=== PATIENT | female | born 1950 | race Caucasian/White ===

== ENCOUNTER → 2019-11-17 | Outpatient (CLI) | payer MEDICARE ==
--- NOTE | 2019-11-18 07:11 | US ---
EXAMINATION TYPE: US bladder DATE OF EXAM: 11/17/2019 COMPARISON: NONE CLINICAL HISTORY: R31.0 Gross Hematuria, R39.11 Hesitancy, R39.15 Urgency of u. hematuria, urgency EXAM MEASUREMENTS: Post Void Residual Volume: 33.1 mL Color Doppler performed to assess ureteral jets. Bilateral Jets seen: yes Normal Post Void Residual (less than 50ml): yes IMPRESSION: No acute process.
== END | disposition home or self-care (01) ==
LOC: RADUSWWP 15:37
PROVIDERS: ATTEND Family Medicine
DX: R31.0 Gross hematuria (principal); R39.11 Hesitancy of micturition; R39.15 Urgency of urination
CPT/HCPCS: 76857

== ENCOUNTER → 2020-12-30 | Outpatient (CLI) | payer MEDICARE ==
--- NOTE | 2021-01-04 09:06 | MM ---
Reason for exam: screening (asymptomatic). Last mammogram was performed 9 years and 1 month ago. History: Patient is postmenopausal and history of other cancer. Took estrogen for 1 year. Took progesterone for 1 year. Physical Findings: A clinical breast exam by your physician is recommended on an annual basis and results should be correlated with mammographic findings. MG 3D Screening Mammo W/Cad Bilateral CC and MLO view(s) were taken. Prior study comparison: December 04, 2011, bilateral digital screening mammo w/CAD. November 07, 2010, bilateral digital screening mammo w/CAD. There are scattered fibroglandular densities. No significant changes when compared with prior studies. ASSESSMENT: Benign, BI-RAD 2 RECOMMENDATION: Routine screening mammogram of both breasts in 1 year.
== END | disposition home or self-care (01) ==
LOC: RADMAMWWP 12:47
PROVIDERS: ATTEND Family Medicine
DX: Z12.31 Encounter for screening mammogram for malignant neoplasm of breast (principal); Z78.0 Asymptomatic menopausal state
CPT/HCPCS: 77063; 77067

== ENCOUNTER 2023-01-03 08:33 | Observation (INO) | payer MEDICARE ==
[2023-01-03] MEDS ORDERED: NITROGLYCERIN OINT 1 INCH/GM PACKET TOPICAL STA (09:00)
[2023-01-03] MEDS ORDERED: ONDANSETRON 4 MG/2 ML VIAL IVP STA (09:10)
[2023-01-03 09:14] LABS: Basophils % (A) 0 %; Eosinophils # (A) 0.1 k/uL (0-0.7); Eosinophils % (A) 2 %; HCT 40.9 % (34.0-46.0); HGB 13.7 gm/dL (11.4-16.0); Lymphocytes % (A) 18 %; MCH 32.1 pg (25.0-35.0); MCHC 33.5 g/dL (31.0-37.0); Mean Platelet Volume 9.1; Monocytes # (A) 0.3 k/uL (0-1.0); Monocytes % (A) 4 %; Neutrophils # (A) 4.1 k/uL (1.3-7.7); Neutrophils % (A) 73 %; Platelet Count 110 k/uL (150-450); RBC 4.26 m/uL (3.80-5.40); RDW 13.1 % (11.5-15.5); WBC 5.6 k/uL (3.8-10.6)
[2023-01-03 09:24] LABS: ALT 29 U/L (4-34); AST 33 U/L (14-36); African American GFR (CKD) >90 (>60 ml/min/1.73 sqM); Albumin 4.2 g/dL (3.5-5.0); Alkaline Phosphatase 86 U/L (38-126); Anion Gap 7 mmol/L; Blood Urea Nitrogen 20 mg/dL (7-17); Calcium 9.2 mg/dL (8.4-10.2); Carbon Dioxide 28 mmol/L (22-30); Chloride 105 mmol/L (98-107); Glucose 91 mg/dL (74-99); Magnesium 1.9 mg/dL (1.6-2.3); Non-African American GFR(CKD) >90 (>60 ml/min/1.73 sqM); Potassium 4.4 mmol/L (3.5-5.1); Sodium 140 mmol/L (137-145); Total Bilirubin 0.8 mg/dL (0.2-1.3); Total Protein 6.9 g/dL (6.3-8.2)
[2023-01-03 09:27] LABS: INR 0.9 (<1.2); Partial Thromboplastin Time 23.7 sec (22.0-30.0); Prothrombin Time 9.9 sec (10.0-12.5)
--- NOTE | 2023-01-03 09:49 | XR ---
EXAMINATION TYPE: XR chest 2V DATE OF EXAM: 01/03/2023 COMPARISON: 01/04/2020 INDICATION: Blood pressure TECHNIQUE: Frontal and lateral views of the chest are obtained. FINDINGS: The heart size is normal. The pulmonary vasculature is normal. The lungs are clear. IMPRESSION: 1. No acute pulmonary process.
--- NOTE | 2023-01-03 10:30 | ED ---
General Adult HPI - General Chief complaint: Chest Pain Stated complaint: High BP, Nausea Time Seen by Provider: 01/03/23 08:45 Source: patient, RN notes reviewed, old records reviewed Mode of arrival: ambulatory Limitations: no limitations - History of Present Illness Initial comments: this is a 72-year-old female who presents emergency Department complaining of chest pain patient states it started around 8 AM. Patient states she does have high blood pressure high cholesterol. Patient states she also has significant thyroid problems. Patient states she has some shortness of breath per patient denies any diaphoretic episodes. Patient denies any palpitations. Patient denies any nausea. Patient denies abdominal pain patient denies any recent fever chills or cough. She denies headache patient denies numbness weakness. - Related Data Allergies Allergy/AdvReac Type Severity Reaction Status Date / Time aspirin AdvReac Unknown Verified 01/03/23 08:39 Review of Systems ROS Statement: Those systems with pertinent positive or pertinent negative responses have been documented in the HPI. ROS Other: All systems not noted in ROS Statement are negative. Past Medical History Past Medical History: Coronary Artery Disease (CAD), Heart Failure, Hyperlipidemia, Hypertension, Thyroid Disorder History of Any Multi-Drug Resistant Organisms: None Reported Past Surgical History: Hernia Repair Additional Past Surgical History / Comment(s): gastric bypass 1998, Past Psychological History: No Psychological Hx Reported Smoking Status: Never smoker Past Alcohol Use History: None Reported Past Drug Use History: None Reported General Exam - General Exam Comments Initial Comments: GENERAL: Patient is well-developed and well-nourished. Patient is nontoxic and well- hydrated and is in mild distress. ENT: Neck is soft and supple. No significant lymphadenopathy is noted. Oropharynx is clear. Moist mucous membranes. Neck has full range of motion without eliciting any pain. EYES: The sclera were anicteric and conjunctiva were pink and moist. Extraocular movements were intact and pupils were equal round and reactive to light. Eyelids were unremarkable. PULMONARY: Unlabored respirations. Good breath sounds bilaterally. No audible rales rhonchi or wheezing was noted. CARDIOVASCULAR: There is a regular rate and rhythm without any murmurs gallops or rubs. ABDOMEN: Soft and nontender with normal bowel sounds. SKIN: Skin is clear with no lesions or rashes and otherwise unremarkable. NEUROLOGIC: Patient is alert and oriented x3. Cranial nerves II through XII are grossly intact. Motor and sensory are also intact. Normal speech, volume and content. Symmetrical smile. MUSCULOSKELETAL: Normal extremities with adequate strength and full range of motion. No lower extremity swelling or edema. No calf tenderness. LYMPHATICS: No significant lymphadenopathy is noted PSYCHIATRIC: Normal psychiatric evaluation. Limitations: no limitations Course Vital Signs 01/03/23 01/03/23 01/03/23 08:35 08:54 09:05 Temperature 98 F Pulse Rate 76 75 Pulse Rate [ 68 Java Analyst ] Respiratory 18 17 Rate Blood Pressure 177/82 190/97 O2 Sat by Pulse 98 98 Oximetry 01/03/23 01/03/23 01/03/23 09:42 10:05 11:02 Temperature Pulse Rate 74 67 72 Pulse Rate [ Java Analyst ] Respiratory 17 16 17 Rate Blood Pressure 188/99 176/102 175/99 O2 Sat by Pulse 95 95 95 Oximetry Medical Decision Making - Medical Decision Making EKG was interpreted by myself. EKG shows a sinus rhythm with occasional PVC at a rate of 70 bpm WA interval 166 QRS is 88 QT interval 375 QTC is 396 per patient's EKG shows no ST segment or depression. Was pt. sent in by a medical professional or institution (, PA, CENTRAL SUPPLY NURSE, urgent ca re, hospital, or [facility]...) When possible be specific @ -No Did you speak to anyone other than the patient for history (EMS, parent, family, police, friend...)? What history was obtained from this source @ -No Did you review nursing and triage notes (agree or disagree)? Why? @ -I reviewed and agree with nursing and triage notes Were old charts reviewed (outside hosp., previous admission, EMS record, old EKG, old radiological studies, urgent care reports/EKG's, [facility] records)? Report findings @ -I reviewed prior charts apart lab work on this patient Differential Diagnosis (chest pain, altered mental status, abdominal pain women, abdominal pain men, vaginal bleeding, weakness, fever, dyspnea, syncope, headache, dizziness, GI bleed, back pain, seizure, CVA, palpatations, mental health, musculoskeletal)? @ -Differential Chest Pain: Stable Angina, Unstable Angina, STEMI, NSTEMI Aortic Dissection, Pneumothorax, Musculoskeletal, Esophageal Spasm GERD, Cholecystitis, Pancreatitis, Zoster, this is not meant to be an all-inclusive list. EKG interpreted by me (3pts min.). @ -As above X-rays interpreted by me (1pt min.). @ -Chest x-ray showed no acute abnormality CT interpreted by me (1pt min.). @ -None done U/S interpreted by me (1pt. min.). @ -None done What testing was considered but not performed or refused? (CT, X-rays, U/S, labs)? Why? @ -None What meds were considered but not given or refused? Why? @ -None Did you discuss the management of the patient with other professionals (professionals i.e. , PA, CENTRAL SUPPLY NURSE, lab, RT, psych nurse, licensed social worker, cold type artist, teacher, retail loan officer, residential case manager)? Give summary @ -I spoke with the [facility] agreed to admit the patient admitted the patient wrote admitting orders Was smoking cessation discussed for >3mins.? @ -No Was critical care preformed (if so, how long)? @ -No Were there social determinants of health that impacted care today? How? (Homele ssness, low income, unemployed, alcoholism, drug addiction, transportation, low edu. Level, literacy, decrease access to med. care, halfway, rehab)? @ -No Was there de-escalation of care discussed even if they declined (Discuss DNR or withdrawal of care, Hospice)? DNR status @ -No What co-morbidities impacted this encounter? (DM, HTN, Smoking, COPD, CAD, Cancer, CVA, ARF, Chemo, Hep., AIDS, mental health diagnosis, sleep apnea, morbid obesity)? @ -None Was patient admitted / discharged? Hospital course, mention meds given and route, prescriptions, significant lab abnormalities, going to OR and other pertinent info. @ -Patient was given aspirin and Nitropaste. I reevaluated the patient and she stated she felt as though the Nitropaste help relieve her chest pain. I spoke with [facility] agreed to admit the patient I wrote admitting orders and I consulted cardiology. Patient currently is having chest pain but very slight. Undiagnosed new problem with uncertain prognosis? @ -No Drug Therapy requiring intensive monitoring for toxicity (Heparin, Nitro, Insulin, Cardizem)? @ -No Were any procedures done? @ -No Diagnosis/symptom? @ -Chest pain Acute, or Chronic, or Acute on Chronic? @ -Acute Uncomplicated (without systemic symptoms) or Complicated (systemic symptoms)? @ -Complicated Side effects of treatment? @ -No Exacerbation, Progression, or Severe Exacerbation? @ -No Poses a threat to life or bodily function? How? (Chest pain, USA, MS, pneumonia, PE, COPD, DKA, ARF, appy, cholecystitis, CVA, Diverticulitis, Homicidal, Suicidal, threat to staff... and all critical care pts) @ -Yes this could lead to an MS and cause end organ dysfunction - Lab Data Result diagrams: 01/03/23 09:03 01/03/23 09:03 Lab Results 01/03/23 01/03/23 01/03/23 Range/Units 09: 09: 09:03 WBC 5.6 (3.8-10.6) k/uL RBC 4.26 (3.80-5.40) m/uL Hgb 13.7 (11.4-16.0) gm/dL Hct 40.9 (34.0-46.0) % MCV 96.0 (80.0-100.0) fL MCH 32.1 (25.0-35.0) pg MCHC 33.5 (31.0-37.0) g/dL RDW 13.1 (11.5-15.5) % Plt Count 110 L (150-450) k/uL MPV 9.1 Neutrophils % 73 % Lymphocytes % 18 % Monocytes % 4 % Eosinophils % 2 % Basophils % 0 % Neutrophils # 4.1 (1.3-7.7) k/uL Lymphocytes # 1.0 (1.0-4.8) k/uL Monocytes # 0.3 (0-1.0) k/uL Eosinophils # 0.1 (0-0.7) k/uL Basophils # 0.0 (0-0.2) k/uL PT 9.9 L (10.0-12.5) sec INR 0.9 (<1.2) APTT 23.7 (22.0-30.0) sec Sodium 140 (137-145) mmol/L Potassium 4.4 (3.5-5.1) mmol/L Chloride 105 (98-107) mmol/L Carbon Dioxide 28 (22-30) mmol/L Anion Gap 7 mmol/L BUN 20 H (7-17) mg/dL Creatinine 0.56 (0.52-1.04) mg/dL Est GFR (CKD-EPI)AfAm >90 (>60 ml/min/1.73 sqM) Est GFR (CKD-EPI)NonAf >90 (>60 ml/min/1.73 sqM) Glucose 91 (74-99) mg/dL Calcium 9.2 (8.4-10.2) mg/dL Magnesium 1.9 (1.6-2.3) mg/dL Total Bilirubin 0.8 (0.2-1.3) mg/dL AST 33 (14-36) U/L ALT 29 (4-34) U/L Alkaline Phosphatase 86 (38-126) U/L Troponin I (0.000-0.034) ng/mL Total Protein 6.9 (6.3-8.2) g/dL Albumin 4.2 (3.5-5.0) g/dL Coronavirus (PCR) (Not Detectd) 01/03/23 01/03/23 Range/Units 09:03 09:45 WBC (3.8-10.6) k/uL RBC (3.80-5.40) m/uL Hgb (11.4-16.0) gm/dL Hct (34.0-46.0) % MCV (80.0-100.0) fL MCH (25.0-35.0) pg MCHC (31.0-37.0) g/dL RDW (11.5-15.5) % Plt Count (150-450) k/uL MPV Neutrophils % % Lymphocytes % % Monocytes % % Eosinophils % % Basophils % % Neutrophils # (1.3-7.7) k/uL Lymphocytes # (1.0-4.8) k/uL Monocytes # (0-1.0) k/uL Eosinophils # (0-0.7) k/uL Basophils # (0-0.2) k/uL PT (10.0-12.5) sec INR (<1.2) APTT (22.0-30.0) sec Sodium (137-145) mmol/L Potassium (3.5-5.1) mmol/L Chloride (98-107) mmol/L Carbon Dioxide (22-30) mmol/L Anion Gap mmol/L BUN (7-17) mg/dL Creatinine (0.52-1.04) mg/dL Est GFR (CKD-EPI)AfAm (>60 ml/min/1.73 sqM) Est GFR (CKD-EPI)NonAf (>60 ml/min/1.73 sqM) Glucose (74-99) mg/dL Calcium (8.4-10.2) mg/dL Magnesium (1.6-2.3) mg/dL Total Bilirubin (0.2-1.3) mg/dL AST (14-36) U/L ALT (4-34) U/L Alkaline Phosphatase (38-126) U/L Troponin I <0.012 (0.000-0.034) ng/mL Total Protein (6.3-8.2) g/dL Albumin (3.5-5.0) g/dL Coronavirus (PCR) Not Detected (Not Detectd) Disposition Clinical Impression: Chest pain Disposition: ADMITTED IP TO THIS HOSP Referrals: Rabia Hdez MD [Primary Care Provider] - 1-2 days Time of Disposition: 11:53
[2023-01-03] MEDS ORDERED: NITROGLYCERIN SL TABS 0.4 MG TAB SUBLINGUAL PRN (11:55)
[2023-01-03] MEDS: NITROGLYCERIN OINT 1 INCH/GM PACKET TOPICAL SCH ×2 (12:07→17:37)
[2023-01-03] MEDS ORDERED: NALOXONE 0.4 MG/ML 1 ML VIAL IVP PRN (12:37)
[2023-01-03] MEDS ORDERED: HYDROcodone/APAP 5-325MG 1 EACH TAB PO PRN (12:37)
[2023-01-03] MEDS ORDERED: ACETAMINOPHEN TAB 325 MG TAB PO PRN (12:37)
[2023-01-03] MEDS ORDERED: hydrALAZINE HCL 20 MG/ML 1 ML VIAL IVP PRN (12:38)
--- NOTE | 2023-01-03 12:44 | P.HPIM ---
History of Present Illness H&P Date: 01/03/23 Chief Complaint: Chest pain, headache, paresthesia * 72-year-old patient with past medical history significant for hypertension, hyperlipidemia, thyroid disorder presented to the emergency department with complains of chest pressure, and bilateral hand numbness that started earlier today when patient was going to work. Patient states that her blood pressure has been running high for the last few days. * Workup obtained in ER included EKG which showed sinus rhythm with occasional PVC and nonspecific ST segment changes no ST segment elevation or depression noted * Chest x-ray obtained in ER negative for acute abnormality * Serum chemistry obtained showed white cell count of 5.6 hemoglobin 13.7 hematocrit 40 platelet 110 * Basic metabolic panel showed serum chemistry sodium 140 potassium 4.4 chloride 105 BUNs 20 creatinine 0.56 blood glucose 91 * Patient to be admitted to medical floor with consultations from cardiology * While in ER patient was noted to have extubated hypertension, she was given sublingual nitro as well with improvement in chest pain REVIEW OF SYSTEMS: Chest pain, bilateral hand numbness CONSTITUTIONAL: No fever, no malaise, no fatigue. HEENT: No recent visual problems or hearing problems. Denied any sore throat. CARDIOVASCULAR: No , orthopnea, PND, no palpitations, no syncope. PULMONARY: No shortness of breath, no cough, no hemoptysis. GASTROINTESTINAL: No diarrhea, no nausea, no vomiting, no abdominal pain. NEUROLOGICAL: No headaches, no weakness, HEMATOLOGICAL: Denies any bleeding or petechiae. GENITOURINARY: Denies any burning micturition, frequency, or urgency. MUSCULOSKELETAL/RHEUMATOLOGICAL: Denies any joint pain, swelling, or any muscle pain. ENDOCRINE: Denies any polyuria or polydipsia. The rest of the 14-point review of systems is negative. PHYSICAL EXAMINATION: GENERAL: The patient is alert and oriented x3, not in any acute distress. Well developed, well nourished. HEENT: Pupils are round and equally reacting to light. EOMI. CARDIOVASCULAR: S1 and S2 present. No murmurs, rubs, or gallops. PULMONARY: Chest is clear to auscultation, no wheezing or crackles. ABDOMEN: Soft, nontender, nondistended, normoactive bowel sounds. No palpable organomegaly. MUSCULOSKELETAL: No joint swelling or deformity. EXTREMITIES: No cyanosis, clubbing, or pedal edema. NEUROLOGICAL: Gross neurological examination did not reveal any focal deficits. SKIN: No rashes. Past Medical History Past Medical History: Coronary Artery Disease (CAD), Heart Failure, Hyperlipidemia, Hypertension, Thyroid Disorder History of Any Multi-Drug Resistant Organisms: None Reported Past Surgical History: Hernia Repair Additional Past Surgical History / Comment(s): gastric bypass 1998, Past Psychological History: No Psychological Hx Reported Smoking Status: Never smoker Past Alcohol Use History: None Reported Past Drug Use History: None Reported Medications and Allergies Allergies Allergy/AdvReac Type Severity Reaction Status Date / Time aspirin AdvReac Unknown Verified 01/03/23 08:39 Physical Exam Vitals: Vital Signs Temp Pulse Pulse Resp BP Pulse Ox 01/03/23 12:02 97.8 F 66 16 156/89 95 01/03/23 11:02 72 17 175/99 95 01/03/23 10:05 67 16 176/102 95 01/03/23 09:42 74 17 188/99 95 01/03/23 09:05 75 17 190/97 98 01/03/23 08:54 68 01/03/23 08:35 98 F 76 18 177/82 98 Intake and Output 01/02/23 01/03/23 01/03/23 22:59 06:59 14:59 Other: Weight 112.945 kg Results CBC & Chem 7: 01/03/23 09:03 01/03/23 09:03 Labs: Abnormal Lab Results - Last 24 Hours (Table) 01/03/23 01/03/23 01/03/23 Range/Units 09:03 09:03 09:03 Plt Count 110 L (150-450) k/uL PT 9.9 L (10.0-12.5) sec BUN 20 H (7-17) mg/dL Assessment and Plan Assessment: Assessment and plan Chest pain rule out ACS Hypertensive urgency History of hypertension History of thyroid disorder Chronic thrombocytopenia * In regards to chest pain, serial troponins ordered, EKG obtained, cardiology consulted, sublingual nitroglycerin for chest pain, continue aspirin * In regards to hypertensive urgency, patient takes Cozaar at home, admission medication reconciliation to be confirmed. Patient started on Lopressor and when necessary IV hydralazine * In regards to thyroid disorder continue home medications once confirmed * In regards to thrombocytopenia, review of blood work shows platelet count ranging 145, 149 since 2019. Continue to monitor for worsening thrombocytopenia will need outpatient follow-up PCP * CODE STATUS is full code Time with Patient: Greater than 30
[2023-01-03] MEDS: METOPROLOL TARTRATE 12.5 MG TAB PO SCH ×2 (12:49→20:16)
[2023-01-03] MEDS ORDERED: LOSARTAN 50 MG TAB PO STA (13:04)
[2023-01-03] MEDS ORDERED: ALPRAZolam 0.25 MG TAB PO PRN (13:36)
[2023-01-03] MEDS ORDERED: ALPRAZolam 0.5 MG TAB PO PRN (13:36)
--- NOTE | 2023-01-03 13:52 | P.CRDCN ---
History of Present Illness Consult date: 01/03/23 History of present illness: History of present illness: This is this is a 72-year-old female patient of Dr. bertrand with past medical history of hypertension, dyslipidemia, history of gastric bypass surgery, known carotid atherosclerosis- recent ultrasound revealed mild carotid artery disease on the right and intermediate disease on the left. Patient was seen in the off ice this summer following an abnormal stress test that revealed moderate anterior ischemia and was advised to undergo cardiac catheterization but she chose to wait as her shortness of breath had been somewhat better and no symptoms of chest pain. We have been asked to evaluate the patient for chest pain. Patient presented with a dull heavy chest pain on the left side of her chest. She had certain recently increased to 50 mg week ago by her PCP as her blood pressure has been running elevated. Patient also has some shortness of breath. No palpitations, no sweats, no nausea no abdominal pain. No fever or chills. Patient is seen today in the emergency center waiting for a bed on the observation unit. EKG sinus rhythm with occasional PVCs, no acute ST changes Chest x-ray: No acute pulmonary process. WBC 5.6, hemoglobin 13.7, platelet count 110. INR 0.9. Electrolytes are normal. BUN 20 creatinine 0.56. Troponin negative 2. Covid 19 not detected. Liver function tests are normal. Magnesium 1.9. Home cardiac medications: Atorvastatin 20 mg daily, losartan 50 mg daily, Aldactone 50 mg daily at 5 PM, also on levothyroxine 75 g daily and on Tepezza IV q21d. Echocardiogram performed 02/2021 revealed EF of 70%. Lexiscan stress test 09/03/2022 was abnormal myocardial perfusion imaging with evidence of reversible defect of moderate size and mild intensity involving the anterior wall of the left ventricle. Normal left ventricle systolic function. Review Of Systems: At the time of my evaluation: Constitutional: No fever, no chills. No weakness, fatigue or lethargy. EENT: No headache. No dizziness. Lungs: No shortness of breath, cough, no sputum production. No wheezing. Cardiovascular: No chest pain, no lower extremity edema. No palpitations. No paroxysmal nocturnal dyspnea. No orthopnea. No lightheadedness or dizziness. No syncopal episodes. Abdominal: No abdominal pain. No nausea, vomiting. No diarrhea. No bloody or tarry stools. Musculoskeletal: No myalgias. No muscle weakness, no frequent falls. Integumentary: No wounds. No rash. No unusual bruising. Neurologic: No aphasia. No facial droop. No change in mentation. Physical examination: Gen: This is a morbidly obese 72-year-old female, resting on ER stretcher and appears to be comfortable and in no acute distress. VS: reviewed blood pressure 178/92, heart rate in the 60s and 70s, afebrile, pulse ox 95% on room air. HEENT: Head is atraumatic, normocephalic. Pupils equal, round. Sclerae is anicteric. NECK: Supple. No JVD. . LUNGS: Clear to auscultation. No wheezes or rhonchi. No intercostal retractions. HEART: Regular rate and rhythm. No murmur. ABDOMEN: Soft No tenderness. EXTREMITIES: No pedal edema. No calf tenderness. NEUROLOGICAL: Patient is awake, alert and oriented x3. Assessment: Chest pain, acute coronary syndrome ruled out Recent abnormal stress test Hypertension Dyslipidemia Morbid obesity status post gastric bypass surgery Carotid atherosclerosis Plan: Resume patient's home cardiac medications Start patient on amlodipine 5 mg daily Increase losartan to 100 mg daily Continue Lopressor 12.5 mg twice daily Schedule for cardiac catheterization tomorrow with Dr. Smith Nothing by mouth after midnight Repeat blood work in the morning Obtain 2-D echocardiogram and Doppler study to assess cardiac structure and function Further recommendations to follow based upon clinical course Thank you kindly for this consultation. Nurse practitioner note has been reviewed, I agree with documented findings and plan of care. Patient was seen and examined. Past Medical History Past Medical History: Coronary Artery Disease (CAD), Heart Failure, Hyperlipidemia, Hypertension, Thyroid Disorder History of Any Multi-Drug Resistant Organisms: None Reported Past Surgical History: Hernia Repair Additional Past Surgical History / Comment(s): gastric bypass 1998, Past Psychological History: No Psychological Hx Reported Smoking Status: Never smoker Past Alcohol Use History: None Reported Past Drug Use History: None Reported Medications and Allergies Home Medications Medication Instructions Recorded Confirmed Type Acetaminophen Tab [Tylenol Tab] 1,000 mg PO BID 01/03/23 01/03/23 History Acetaminophen/Diphenhydramine 2 tab PO HS 01/03/23 01/03/23 History [Tylenol PM 500-25mg] Atorvastatin [Lipitor] 20 mg PO DAILY 01/03/23 01/03/23 History Levothyroxine Sodium [Synthroid] 75 mcg PO DAILY@0630 01/03/23 01/03/23 History Losartan Potassium 50 mg PO DAILY@199901/03/23 01/03/23 History Multivitamins, Thera [Multivitamin 1 tab PO DAILY 01/03/23 01/03/23 History (formulary)] Spironolactone [Aldactone] 50 mg PO DAILY@1700 01/03/23 01/03/23 History Teprotumumab-Trbw [Tepezza] 500 mg IV Q21D 01/03/23 01/03/23 History Ubidecarenone [Coenzyme Q10] 50 mg PO DAILY 01/03/23 01/03/23 History Allergies Allergy/AdvReac Type Severity Reaction Status Date / Time aspirin AdvReac Unknown Verified 01/03/23 12:41 Physical Exam Vitals: Vital Signs Temp Pulse Pulse Resp BP Pulse Ox 01/03/23 12:02 97.8 F 66 16 156/89 95 01/03/23 11:02 72 17 175/99 95 01/03/23 10:05 67 16 176/102 95 01/03/23 09:42 74 17 188/99 95 01/03/23 09:05 75 17 190/97 98 01/03/23 08:54 68 01/03/23 08:35 98 F 76 18 177/82 98 Intake and Output 01/02/23 01/03/23 01/03/23 22:59 06:59 14:59 Other: Weight 112.945 kg Results 01/03/23 09:03 01/03/23 09:03 Cardiac Enzymes 01/03/23 01/03/23 Range/Units 09:03 09:03 AST 33 (14-36) U/L Troponin I <0.012 (0.000-0.034) ng/mL Coagulation 01/03/23 Range/Units 09:03 PT 9.9 L (10.0-12.5) sec APTT 23.7 (22.0-30.0) sec CBC 01/03/23 Range/Units 09:03 WBC 5.6 (3.8-10.6) k/uL RBC 4.26 (3.80-5.40) m/uL Hgb 13.7 (11.4-16.0) gm/dL Hct 40.9 (34.0-46.0) % Plt Count 110 L (150-450) k/uL Comprehensive Metabolic Panel 01/03/23 Range/Units 09:03 Sodium 140 (137-145) mmol/L Potassium 4.4 (3.5-5.1) mmol/L Chloride 105 (98-107) mmol/L Carbon Dioxide 28 (22-30) mmol/L BUN 20 H (7-17) mg/dL Creatinine 0.56 (0.52-1.04) mg/dL Glucose 91 (74-99) mg/dL Calcium 9.2 (8.4-10.2) mg/dL AST 33 (14-36) U/L ALT 29 (4-34) U/L Alkaline Phosphatase 86 (38-126) U/L Total Protein 6.9 (6.3-8.2) g/dL Albumin 4.2 (3.5-5.0) g/dL Current Medications Generic Name Dose Route Start Last Admin Trade Name Freq PRN Reason Stop Dose Admin Acetaminophen 650 mg 01/03/23 12:37 Acetaminophen Tab 325 Mg Tab PO Q6HR PRN Mild Pain or Fever > 100.5 Hydrocodone Bitart/Acetaminophen 1 each 01/03/23 12:37 Hydrocodone/Apap 5-325mg 1 Each Tab PO Q4HR PRN Moderate Pain (Scale 4 to 6) Aspirin 81 mg 01/04/23 09:00 Aspirin 81 Mg PO DAILY DARI Hydralazine HCl 10 mg 01/03/23 12:38 Hydralazine Hcl 20 Mg/Ml 1 Ml Vial IVP Q6HR PRN Blood Pressure - High Metoprolol Tartrate 12.5 mg 01/03/23 12:45 Metoprolol Tartrate 12.5 Mg Tab PO BID DARI Naloxone HCl 0.2 mg 01/03/23 12:37 Naloxone 0.4 Mg/Ml 1 Ml Vial IVP Q2M PRN Opioid Reversal Nitroglycerin 0.4 mg 01/03/23 11:55 Nitroglycerin Sl Tabs 0.4 Mg Tab SUBLINGUAL Q5M PRN Chest Pain Nitroglycerin 1 inch 01/03/23 12:00 01/03/23 12:07 Nitroglycerin Oint 1 Inch/Gm Packet TOPICAL Not Given Q6HR DARI Intake and Output 01/02/23 01/03/23 01/03/23 22:59 06:59 14:59 Other: Weight 112.945 kg Patient Weight 01/04/23 06:59 Weight 112.945 kg 01/03/23 09:03 01/03/23 09:03
[2023-01-03 15:08] LABS: T4, Free (Free Thyroxine) 1.45 ng/dL (0.78-2.19)
[2023-01-03] MEDS: SODIUM CHLORIDE 0.9% 1,000 ML IV SCH (15:12)
[2023-01-03] MEDS: SPIRONOLACTONE 25 MG TAB PO SCH (16:25)
[2023-01-03] MEDS: ACETAMINOPHEN TAB 500 MG TAB PO SCH (18:15)
[2023-01-03] MEDS ORDERED: LOSARTAN 50 MG TAB PO SCH (20:00)
[2023-01-03] MEDS: diphenhydrAMINE 25 MG CAP PO SCH (20:16)
[2023-01-03] MEDS: HEPARIN SODIUM,PORCINE 5,000 UNIT/ML 1 ML VIAL SQ SCH (20:17)
[2023-01-04] MEDS: NITROGLYCERIN OINT 1 INCH/GM PACKET TOPICAL SCH ×5 (00:13→20:58)
[2023-01-04] MEDS: SODIUM CHLORIDE 0.9% 1,000 ML IV SCH ×2 (04:36→18:53)
[2023-01-04] MEDS: ATORVASTATIN 20 MG TAB PO SCH (05:35)
[2023-01-04] MEDS: HEPARIN SODIUM,PORCINE 5,000 UNIT/ML 1 ML VIAL SQ SCH ×2 (05:39→20:10)
[2023-01-04] MEDS: METOPROLOL TARTRATE 12.5 MG TAB PO SCH ×2 (05:40→20:10)
[2023-01-04] MEDS: LOSARTAN 50 MG TAB PO SCH (05:40)
[2023-01-04] MEDS: amLODIPine 5 MG TAB PO SCH (05:40)
[2023-01-04] MEDS: MULTIVITAMINS, THERA 1 EACH TAB PO SCH (05:41)
[2023-01-04] MEDS: LEVOTHYROXINE 75 MCG TAB PO SCH (05:41)
[2023-01-04] MEDS: ACETAMINOPHEN TAB 500 MG TAB PO SCH ×2 (05:41→20:10)
[2023-01-04] MEDS ORDERED: HEPARIN SODIUM,PORCINE 10,000 UNIT in SODIUM CHLORIDE 0.9% 1,000 ML IRRIGATION PRN (07:00)
[2023-01-04] MEDS ORDERED: ASPIRIN 325 MG TAB PO ONE (07:00)
[2023-01-04] MEDS ORDERED: ATORVASTATIN 80 MG TAB PO ONE (07:00)
[2023-01-04] MEDS ORDERED: HEPARIN SODIUM,PORCINE (1 ML) 2,500 UNIT in SODIUM CHLORIDE 0.9% 250 ML IRRIGATION PRN (07:00)
[2023-01-04 07:08] LABS: African American GFR (CKD) >90 (>60 ml/min/1.73 sqM); Anion Gap 8 mmol/L; Blood Urea Nitrogen 19 mg/dL (7-17); Calcium 8.8 mg/dL (8.4-10.2); Carbon Dioxide 25 mmol/L (22-30); Chloride 105 mmol/L (98-107); Glucose 102 mg/dL (74-99); Non-African American GFR(CKD) >90 (>60 ml/min/1.73 sqM); Potassium 4.2 mmol/L (3.5-5.1); Sodium 138 mmol/L (137-145)
[2023-01-04] MEDS ORDERED: ASPIRIN 325 MG TAB PO SCH (09:00)
[2023-01-04] MEDS ORDERED: ASPIRIN 81 MG PO SCH (09:00)
--- NOTE | 2023-01-04 09:34 | CA ---
Transthoracic Echo Report Name: Aylin Chaney Age: 72 Gender: F : 1950 Exam Date: 01/03/2023 14:54 Exam Location: [facility] Ht (in): 65 Wt (lb): 249 Ordering Physician: Romelia Murray Attending/Referring Phys: [id number], Trevor Machine Lacer Rosana Morse, FOX Procedure CPT: Indications: LVF Cardiac Hx: CAD, HTN Technical Quality: Fair Contrast 1: Total Dose (mL): Contrast 2: Total Dose (mL): MEASUREMENTS (Male / Female) Normal Values 2D ECHO LV Diastolic Diameter PLAX 5.5 cm 4.2 - 5.9 / 3.9 - 5.3 cm LV Systolic Diameter PLAX 4.1 cm IVS Diastolic Thickness 1.3 cm 0.6 - 1.0 / 0.6 - 0.9 cm LVPW Diastolic Thickness 1.2 cm 0.6 - 1.0 / 0.6 - 0.9 cm LV Relative Wall Thickness 0.5 LA Systolic Diameter LX 4.3 cm 3.0 - 4.0 / 2.7 - 3.8 cm LV Diastolic Volume MOD 4C 72.4 cm??? LV Systolic Volume MOD 4C 34.4 cm??? LV Ejection Fraction MOD 4C 52.6 % LV Cardiac Index MOD 4C 1027.9 cm???/min???m??? LV Diastolic Length 4C 7.5 cm LV Systolic Length 4C 6.3 cm LV Diastolic Volume MOD 2C 83.8 cm??? LV Systolic Volume MOD 2C 40.8 cm??? LV Ejection Fraction MOD 2C 51.3 % LV Cardiac Index MOD 2C 1159.1 cm???/min???m??? LV Diastolic Length 2C 8.1 cm LV Systolic Length 2C 6.8 cm LA Volume 67.1 cm??? 18 - 58 / 22 - 52 cm??? LA Volume Index 28.8 cm???/m??? 16 - 28 cm???/m??? M-MODE Aortic Root Diameter MM 3.2 cm MV E Point Septal Separation 2.8 cm AV Cusp Separation MM 2.1 cm DOPPLER AV Peak Velocity 136.1 cm/s AV Peak Gradient 7.4 mmHg MV Area PHT 2.9 cm??? Mitral E Point Velocity 123.7 cm/s Mitral A Point Velocity 151.2 cm/s Mitral E to A Ratio 0.8 MV Deceleration Time 262.1 ms MV E' Velocity 5.1 cm/s Mitral E to MV E' Ratio 24.1 TR Peak Velocity 267.9 cm/s TR Peak Gradient 28.7 mmHg Right Ventricular Systolic Press 33.7 mmHg FINDINGS Left Ventricle Left ventricular ejection fraction is estimated at 50-55 %. Moderately increased septal wall thickness. Mildly increased posterior wall thickness. Mildly increased left ventricular diastolic diameter. Right Ventricle Normal right ventricular size. Right ventricular systolic pressure within normal limits. Right Atrium Normal right atrial size. Left Atrium Moderately increased left atrial diameter. Moderately increased left atrial volume. Mildly increased left atrial area. Mitral Valve Rheumatic mitral valve. Moderate mitral annular calcification. Mild mitral regurgitation. Aortic Valve Aortic valve not well visualized. No aortic stenosis. No aortic regurgitation. Tricuspid Valve Structurally normal tricuspid valve. Mild tricuspid regurgitation. Pulmonic Valve Pulmonic valve not well visualized. Pericardium No pericardial effusion. Aorta Normal size aortic root and proximal ascending aorta. CONCLUSIONS Normal LV size with fairly well-preserved systolic function. Left atrium is enlarged. There is mitral annular calcification and aortic valve sclerosis without restriction. There is mild mitral and tricuspid regurgitation no significant pulmonary hypertension no pericardial effusion Previewed by: Dr. Jaky Maddox MD (Electronically Signed) Final Date: 04 January 2023 09:33
--- NOTE | 2023-01-04 10:42 | P.PN ---
Subjective Progress Note Date: 01/04/23 History of present illness: This is this is a 72-year-old female patient of Dr. bertrand with past medical his tory of hypertension, dyslipidemia, history of gastric bypass surgery, known carotid atherosclerosis- recent ultrasound revealed mild carotid artery disease on the right and intermediate disease on the left. Patient was seen in the office this summer following an abnormal stress test that revealed moderate anterior ischemia and was advised to undergo cardiac catheterization but she chose to wait as her shortness of breath had been somewhat better and no symptoms of chest pain. We have been asked to evaluate the patient for chest pain. Patient presented with a dull heavy chest pain on the left side of her chest. She had certain recently increased to 50 mg week ago by her PCP as her blood pressure has been running elevated. Patient also has some shortness of breath. No palpitations, no sweats, no nausea no abdominal pain. No fever or chills. Patient is seen today in the emergency center waiting for a bed on the observation unit. EKG sinus rhythm with occasional PVCs, no acute ST changes Chest x-ray: No acute pulmonary process. WBC 5.6, hemoglobin 13.7, platelet count 110. INR 0.9. Electrolytes are normal. BUN 20 creatinine 0.56. Troponin negative 2. Covid 19 not detected. Liver function tests are normal. Magnesium 1.9. Home cardiac medications: Atorvastatin 20 mg daily, losartan 50 mg daily, Aldactone 50 mg daily at 5 PM, also on levothyroxine 75 g daily and on Tepezza IV q21d. Echocardiogram performed 02/2021 revealed EF of 70%. Lexiscan stress test 09/03/2022 was abnormal myocardial perfusion imaging with evidence of reversible defect of moderate size and mild intensity involving the anterior wall of the left ventricle. Normal left ventricle systolic function. 01/04 Patient seen today in follow-up. She is scheduled for cardiac catheterization today with Dr. Smith. Patient denies having any chest pain. Vital signs have been stable. Repeat blood work reveals BUN of 19, creatinine 0.57. CBC is status received and not reported at the time of this dictation. Echocardiogram reveals normal LV size with fairly well preserved systolic function. Left atrium is enlarged. Mitral annular calcification and aortic valve sclerosis without restriction. Mild mitral and tricuspid regurgitation. No significant pulmonary hypertension. Diffusion. Physical examination: Gen: This is a morbidly obese 72-year-old female, resting in bed and appears to be comfortable and in no acute distress. VS: reviewed HEENT: Head is atraumatic, normocephalic. Pupils equal, round. Sclerae is anicteric. LUNGS: Clear to auscultation. No wheezes or rhonchi. No intercostal retractions. HEART: Regular rate and rhythm. No murmur. EXTREMITIES: No pedal edema. No calf tenderness. NEUROLOGICAL: Patient is awake, alert and oriented x3. Assessment: Chest pain, acute coronary syndrome ruled out Recent abnormal stress test Hypertension Dyslipidemia Morbid obesity status post gastric bypass surgery Carotid atherosclerosis Plan: Continue patient's home cardiac medications Continue patient on amlodipine 5 mg daily Continue increased dose of losartan 100 mg daily Continue Lopressor 12.5 mg twice daily Patient is scheduled for cardiac catheterization today with Dr. Sarah NAVARRO pending Further recommendations to follow based upon clinical course Nurse practitioner note has been reviewed, I agree with documented findings and plan of care. Patient was seen and examined. Objective - Vital Signs Vital signs: Vital Signs Temp 97.6 F 01/04/23 07:00 Pulse 61 01/04/23 07:00 Resp 16 01/04/23 07:00 BP 129/77 01/04/23 07:00 Pulse Ox 96 01/04/23 07:00 FiO2 Intake & Output 01/03/23 01/04/23 01/04/23 18:59 06:59 18:59 Weight 112.945 kg Other: # Voids 1 - Labs CBC & Chem 7: 01/03/23 09:03 01/04/23 06:13 Labs: Abnormal Lab Results - Last 24 Hours (Table) 01/03/23 01/03/23 01/03/23 Range/Units 09:03 09:03 09:03 Plt Count 110 L (150-450) k/uL PT 9.9 L (10.0-12.5) sec BUN 20 H (7-17) mg/dL Glucose (74-99) mg/dL TSH (0.465-4.680) mIU/L 01/03/23 01/04/23 Range/Units 12:24 06:13 Plt Count (150-450) k/uL PT (10.0-12.5) sec BUN 19 H (7-17) mg/dL Glucose 102 H (74-99) mg/dL TSH 0.099 L (0.465-4.680) mIU/L
[2023-01-04 10:52] LABS: HCT 37.4 % (37.2-46.3); HGB 12.4 g/dL (12.0-15.0); MCH 31.6 pg (27.0-32.0); MCHC 33.2 g/dL (32.0-37.0); MCV 95.2 FL (80.0-97.0); Mean Platelet Volume 11.9 FL (9.5-12.2); NRBC Per 100 WBC 0 X 10*3/uL (0.00-0.01); Platelet Count 108 X 10*3/uL (140-440); RBC 3.93 X 10*6/uL (4.10-5.20); RDW 12.9 % (11.5-14.5); WBC 5.14 X 10*3/uL (4.50-10.00)
[2023-01-04 11:13] LABS: Chol/HDL Ratio 1.86 Ratio; LDL Cholesterol,Calculated 43.1 mg/dL (0.0-131.0); VLDL Calculation 10.94 mg/dL (5.00-40.00)
[2023-01-04] MEDS ORDERED: HEPARIN SODIUM 1,000 UN/ML (10ML VL) ONE (11:38)
--- NOTE | 2023-01-04 11:54 | P.PN ---
Subjective Progress Note Date: 01/04/23 * 72-year-old patient with past medical history significant for hypertension, hyperlipidemia, thyroid disorder presented to the emergency department with complains of chest pressure, and bilateral hand numbness that started earlier today when patient was going to work. Patient states that her blood pressure has been running high for the last few days. * Workup obtained in ER included EKG which showed sinus rhythm with occasional PVC and nonspecific ST segment changes no ST segment elevation or depression noted * Chest x-ray obtained in ER negative for acute abnormality * Serum chemistry obtained showed white cell count of 5.6 hemoglobin 13.7 hematocrit 40 platelet 110 * Basic metabolic panel showed serum chemistry sodium 140 potassium 4.4 chloride 105 BUNs 20 creatinine 0.56 blood glucose 91 * Patient to be admitted to medical floor with consultations from cardiology * While in ER patient was noted to have extubated hypertension, she was given sublingual nitro as well with improvement in chest pain * 01/04/2023: Patient seen and evaluated bedside, patient states chest pain has resolved, family at bedside as well. Multiple troponins obtained at remain negative. Plan for echocardiogram and cardiac catheterization today. Patient nothing by mouth in anticipation of cardiac cath. Blood pressure better controlled patient on amlodipine, losartan, Lopressor. CBC and basic metabolic panel reviewed liver profile reviewed REVIEW OF SYSTEMS: Chest pain, bilateral hand numbness resolved CONSTITUTIONAL: No fever, no malaise, no fatigue. HEENT: No recent visual problems or hearing problems. Denied any sore throat. CARDIOVASCULAR: No , orthopnea, PND, no palpitations, no syncope. PULMONARY: No shortness of breath, no cough, no hemoptysis. GASTROINTESTINAL: No diarrhea, no nausea, no vomiting, no abdominal pain. NEUROLOGICAL: No headaches, no weakness, HEMATOLOGICAL: Denies any bleeding or petechiae. GENITOURINARY: Denies any burning micturition, frequency, or urgency. MUSCULOSKELETAL/RHEUMATOLOGICAL: Denies any joint pain, swelling, or any muscle pain. ENDOCRINE: Denies any polyuria or polydipsia. PHYSICAL EXAMINATION: See vitals below GENERAL: The patient is alert and oriented x3, not in any acute distress. Well d eveloped, well nourished. HEENT: Pupils are round and equally reacting to light. EOMI. CARDIOVASCULAR: S1 and S2 present. No murmurs, rubs, or gallops. PULMONARY: Chest is clear to auscultation, no wheezing or crackles. ABDOMEN: Soft, nontender, nondistended, normoactive bowel sounds. No palpable organomegaly. MUSCULOSKELETAL: No joint swelling or deformity. EXTREMITIES: No cyanosis, clubbing, or pedal edema. NEUROLOGICAL: Gross neurological examination did not reveal any focal deficits. SKIN: No rashes. Objective - Vital Signs Vital signs: Vital Signs Temp 97.6 F 01/04/23 07:00 Pulse 61 01/04/23 07:00 Resp 16 01/04/23 07:00 BP 129/77 01/04/23 07:00 Pulse Ox 96 01/04/23 07:00 FiO2 Intake & Output 01/03/23 01/04/23 01/04/23 18:59 06:59 18:59 Weight 112.945 kg Other: # Voids 1 - Labs CBC & Chem 7: 01/04/23 06:13 01/04/23 06:13 Labs: Abnormal Lab Results - Last 24 Hours (Table) 01/03/23 01/04/23 01/04/23 Range/Units 12:24 06:13 06:13 RBC 3.93 L (4.10-5.20) X 10*6/uL Plt Count 108 L (140-440) X 10*3/uL BUN 19 H (7-17) mg/dL Glucose 102 H (74-99) mg/dL HDL Cholesterol 63.00 H (40.00-60.00) mg/dL TSH 0.099 L (0.465-4.680) mIU/L Assessment and Plan Assessment: Assessment and plan Chest pain rule out ACS Hypertensive urgency History of hypertension History of thyroid disorder Chronic thrombocytopenia * In regards to chest pain, /serial troponins obtained negative/cardiology consulted/echocardiogram and cardiac catheterization ordered/continue current medications including amlodipine, Lipitor, losartan, metoprolol, Aldactone, sublingual nitroglycerin * In regards to hypertensive urgency, continue current antihypertensive regimen * In regards to thyroid disorder continue Synthyroid * In regards to thrombocytopenia, review of blood work shows platelet count ranging 145, 149 since 2020. Continue to monitor for worsening thrombocytopenia will need outpatient follow-up PCP * CODE STATUS is full code
[2023-01-04] MEDS ORDERED: MIDAZOLAM 2 MG/2 ML VIAL IVP ONE (12:04)
[2023-01-04] MEDS ORDERED: LIDOCAINE 1% INJ 10MG/ML (30 ML VIAL-PF) SQ ONE (12:05)
[2023-01-04] MEDS ORDERED: IV FLUID CONTINUATION 1,000 ML IV ONE (12:05)
[2023-01-04] MEDS ORDERED: VERAPAMIL SYRINGE (5 MG/10 ML) INTRAARTER ONE (12:06)
[2023-01-04] MEDS ORDERED: HEPARIN SODIUM 1,000 UN/ML (10ML VL) IV ONE (12:09)
[2023-01-04] MEDS ORDERED: IOPAMIDOL-370 100ML BTL INJ ONE (12:13)
[2023-01-04] MEDS ORDERED: EMPTY BAG 1 BAG with SODIUM CHLORIDE 0.9% 1,000 ML IV ONE (13:52)
--- NOTE | 2023-01-04 18:01 | CC ---
CARDIAC CATHETERIZATION REPORT INDICATION: Unstable angina in this 72-year-old female patient, who underwent a stress test and that came in to be abnormal showing ischemia. APPROACH: Right radial artery. COMPLICATIONS: None. LEVEL OF SEDATION: Moderate with sedation length of 12 minutes. DESCRIPTION OF PROCEDURE: After obtaining an informed consent, the patient was brought to the cardiac lab associate. The right radial artery was cannulated using micropuncture technique under ultrasound guidance, the micropuncture wire passed easily. Then, I placed a 6-Czech sheath at the right radial artery. I gave the patient 2 mg of verapamil intra-arterially and 5000 units of heparin intravenous and selective right and left coronary angiogram performed using JR4 and JL3.5 catheters. After that, left heart catheterization was performed using 5-Czech pigtail catheter. Selective coronary angiogram: 1. The RCA is a large-caliber vessel and a dominant vessel and appeared to be angiographically normal. It distally bifurcates into PDA and PLV branches, both appeared to be normal. 2. The left main is angiographically normal. It bifurcates into LCX and LAD. 3. The LCX is a large caliber vessel, nondominant vessel. Gives rise into the 1st or 2nd obtuse marginal branches, both appeared to be angiographically normal. 4. The LAD is a large caliber vessel. The LAD is angiographically normal. It gives rise into a large diagonal branch, which seems to be normal. HEMODYNAMICS: The LVEDP was 12 mmHg with no significant gradient across the aortic valve. CONCLUSION: 1. Normal coronary angiogram. 2. Normal left-sided filling pressure. MMODL / IJN: [id number] /
[2023-01-04] MEDS: SPIRONOLACTONE 25 MG TAB PO SCH (19:32)
[2023-01-04] MEDS: diphenhydrAMINE 25 MG CAP PO SCH (20:10)
[2023-01-05 03:55] VITALS: RESP 16
[2023-01-05] MEDS: NITROGLYCERIN OINT 1 INCH/GM PACKET TOPICAL SCH ×2 (04:57→13:00)
[2023-01-05] MEDS: SODIUM CHLORIDE 0.9% 1,000 ML IV SCH (05:25)
[2023-01-05] MEDS: LEVOTHYROXINE 75 MCG TAB PO SCH (05:28)
[2023-01-05 08:10] VITALS: BP 135/80; PULSE 63; TEMP 97.8
[2023-01-05] MEDS: HEPARIN SODIUM,PORCINE 5,000 UNIT/ML 1 ML VIAL SQ SCH (08:48)
[2023-01-05] MEDS: ACETAMINOPHEN TAB 500 MG TAB PO SCH (08:48)
[2023-01-05] MEDS: amLODIPine 5 MG TAB PO SCH (08:49)
[2023-01-05] MEDS: LOSARTAN 50 MG TAB PO SCH (08:49)
[2023-01-05] MEDS: METOPROLOL TARTRATE 12.5 MG TAB PO SCH (08:49)
[2023-01-05] MEDS: MULTIVITAMINS, THERA 1 EACH TAB PO SCH (08:49)
[2023-01-05] MEDS: ATORVASTATIN 20 MG TAB PO SCH (08:49)
[2023-01-05 09:10] LABS: HCT 38.8 % (37.2-46.3); HGB 12.8 g/dL (12.0-15.0); MCH 31.5 pg (27.0-32.0); MCV 95.6 FL (80.0-97.0); Mean Platelet Volume 12.2 FL (9.5-12.2); NRBC Per 100 WBC 0 X 10*3/uL (0.00-0.01); Platelet Count 112 X 10*3/uL (140-440); RBC 4.06 X 10*6/uL (4.10-5.20); RDW 12.8 % (11.5-14.5); WBC 5.32 X 10*3/uL (4.50-10.00)
[2023-01-05 09:33] LABS: BUN/Creat Ratio 26.71 Ratio (12.00-20.00); Blood Urea Nitrogen 18.7 mg/dL (9.0-27.0); Calcium 8.8 mg/dL (8.7-10.3); Carbon Dioxide 26.7 mmol/L (21.6-31.8); Chloride 106 mmol/L (96-109); Glucose 96 mg/dL (70-110); Potassium 4.6 mmol/L (3.5-5.5); Sodium 142 mmol/L (135-145)
--- NOTE | 2023-01-05 12:47 | P.DS ---
Providers Date of admission: 01/03/23 12:01 Expected date of discharge: 01/05/23 Attending physician: Deshawn Carter MD Consults: 01/03/23 11:55 Consult Physician Urgent Consulting Provider: [facility] Reason/Comments: Chest pain Do you want consulting provider notified?: Yes Primary care physician: [facility] Course: * 72-year-old patient with past medical history significant for hypertension, hyperlipidemia, thyroid disorder presented to the emergency department with complains of chest pressure, and bilateral hand numbness that started earlier today when patient was going to work. Patient states that her blood pressure has been running high for the last few days. * Workup obtained in ER included EKG which showed sinus rhythm with occasional PVC and nonspecific ST segment changes no ST segment elevation or depression noted * Chest x-ray obtained in ER negative for acute abnormality * Serum chemistry obtained showed white cell count of 5.6 hemoglobin 13.7 hematocrit 40 platelet 110 * Basic metabolic panel showed serum chemistry sodium 140 potassium 4.4 chloride 105 BUNs 20 creatinine 0.56 blood glucose 91 * Patient to be admitted to medical floor with consultations from cardiology * While in ER patient was noted to have extubated hypertension, she was given sublingual nitro as well with improvement in chest pain * 01/04/2023: Patient seen and evaluated bedside, patient states chest pain has resolved, family at bedside as well. Multiple troponins obtained at remain negative. Plan for echocardiogram and cardiac catheterization today. Patient nothing by mouth in anticipation of cardiac cath. Blood pressure better controlled patient on amlodipine, losartan, Lopressor. CBC and basic metabolic panel reviewed liver profile reviewed * 01/05/2023: Patient seen and evaluated bedside, patient underwent cardiac catheterization. Postprocedure patient was monitored overnight patient had right radial bleeding hence caution and close monitoring. Echocardiogram completed showed ejection fraction of 55% increased septal wall thickness. Patient started on antihypertensive medication does of Cozaar increased, continue metoprolol and amlodipine. Patient seen by cardiology and cleared for discharge REVIEW OF SYSTEMS: Chest pain, bilateral hand numbness resolved CONSTITUTIONAL: No fever, no malaise, no fatigue. HEENT: No recent visual problems or hearing problems. Denied any sore throat. CARDIOVASCULAR: No , orthopnea, PND, no palpitations, no syncope. PULMONARY: No shortness of breath, no cough, no hemoptysis. GASTROINTESTINAL: No diarrhea, no nausea, no vomiting, no abdominal pain. NEUROLOGICAL: No headaches, no weakness, HEMATOLOGICAL: Denies any bleeding or petechiae. GENITOURINARY: Denies any burning micturition, frequency, or urgency. MUSCULOSKELETAL/RHEUMATOLOGICAL: Denies any joint pain, swelling, or any muscle pain. ENDOCRINE: Denies any polyuria or polydipsia. PHYSICAL EXAMINATION: GENERAL: The patient is alert and oriented x3, not in any acute distress. Well developed, well nourished. HEENT: Pupils are round and equally reacting to light. EOMI. CARDIOVASCULAR: S1 and S2 present. No murmurs, rubs, or gallops. Right radial access no hematoma PULMONARY: Chest is clear to auscultation, no wheezing or crackles. ABDOMEN: Soft, nontender, nondistended, normoactive bowel sounds. No palpable organomegaly. MUSCULOSKELETAL: No joint swelling or deformity. EXTREMITIES: No cyanosis, clubbing, or pedal edema. NEUROLOGICAL: Gross neurological examination did not reveal any focal deficits. SKIN: No rashes. Assessment: Assessment: Chest pain, acute coronary syndrome ruled out Recent abnormal stress test Hypertension Dyslipidemia Morbid obesity status post gastric bypass surgery Carotid atherosclerosis Patient is status post cardiac catheterization, medical management recommended Regards to hypertension continue patient on amlodipine, losartan, Lopressor Outpatient follow-up with cardiology and primary care physician Patient Condition at Discharge: Stable Plan - Discharge Summary New Discharge Prescriptions: New Losartan [Cozaar] 100 mg PO DAILY 30 Days #60 tab amLODIPine [Norvasc] 5 mg PO DAILY 30 Days #30 tab Metoprolol Tartrate [Lopressor] 12.5 mg PO BID 30 Days #60 tab Continue Atorvastatin [Lipitor] 20 mg PO DAILY Acetaminophen/Diphenhydramine [Tylenol PM 500-25mg] 2 tab PO HS Spironolactone [Aldactone] 50 mg PO DAILY@1700 Levothyroxine Sodium [Synthroid] 75 mcg PO DAILY@0630 Multivitamins, Thera [Multivitamin (formulary)] 1 tab PO DAILY Acetaminophen Tab [Tylenol] 1,000 mg PO BID Ubidecarenone [Coenzyme Q10] 50 mg PO DAILY Teprotumumab-Trbw [Tepezza] 500 mg IV Q21D Discontinued Losartan Potassium 50 mg PO DAILY@1999 Discharge Medication List Acetaminophen Tab [Tylenol] 1,000 mg PO BID 01/03/23 [History] Acetaminophen/Diphenhydramine [Tylenol PM 500-25mg] 2 tab PO HS 01/03/23 [History] Atorvastatin [Lipitor] 20 mg PO DAILY 01/03/23 [History] Levothyroxine Sodium [Synthroid] 75 mcg PO DAILY@0630 01/03/23 [History] Multivitamins, Thera [Multivitamin (formulary)] 1 tab PO DAILY 01/03/23 [History] Spironolactone [Aldactone] 50 mg PO DAILY@1700 01/03/23 [History] Teprotumumab-Trbw [Tepezza] 500 mg IV Q21D 01/03/23 [History] Ubidecarenone [Coenzyme Q10] 50 mg PO DAILY 01/03/23 [History] Losartan [Cozaar] 100 mg PO DAILY 30 Days #60 tab 01/05/23 [Rx] Metoprolol Tartrate [Lopressor] 12.5 mg PO BID 30 Days #60 tab 01/05/23 [Rx] amLODIPine [Norvasc] 5 mg PO DAILY 30 Days #30 tab 01/05/23 [Rx] Follow up Appointment(s)/Referral(s): Dillon Smith MD [STAFF PHYSICIAN] - 01/15/23 11:15 am Rabia Hdez MD [Primary Care Provider] - 1-2 days Patient Instructions/Handouts: Heart Catheterization (DC) Discharge Disposition: HOME SELF-CARE
--- NOTE | 2023-01-05 13:01 | P.PN ---
Subjective Progress Note Date: 01/05/23 The patient is a 72-year-old female follows in the office with Dr. Hurtado. She presented to the emergency room with chest discomfort. ACS workup was unremarkable and echocardiogram revealed preserved LV function. The patient had undergone stress testing over the summer which did show a moderate size reve rsible defect, therefore coronary angiogram was advised. Patient was interviewed and examined resting comfortably in bed. She states she's had no recurrence of her chest discomfort. She has no difficulty breathing. Mild discomfort in her right wrist. GENERAL: Well-appearing, well-nourished and in no acute distress. NECK: Supple without JVD or thyromegaly. LUNGS: Breath sounds diminished to auscultation bilaterally. Respiration equal and unlabored. No wheezes, rales or rhonchi. HEART: Regular rate and rhythm without murmurs, rubs or gallops. S1 and S2 heard. EXTREMITIES: Normal range of motion, no edema. No clubbing or cyanosis. Peripheral pulses intact and strong. Right radial site is bruised. Small hematoma. TELEMETRY: Sinus rhythm overnight IMPRESSION: Chest discomfort Abnormal stress testing with normal coronary arteries Hypothyroidism, suppressed TSH Hypertension Dyslipidemia Morbid obesity Carotid atherosclerosis PLAN: Follow-up with endocrinology regarding abnormal TSH Continue current cardiac medication regimen Outpatient follow-up with Dr. Hurtado in 1-2 weeks I am dictating on behalf of Dr Phil Maurice's history/physical and assessment/plan. Objective - Vital Signs Vital signs: Vital Signs Temp 97.8 F 01/05/23 07:00 Pulse 63 01/05/23 07:00 Resp 16 01/05/23 07:00 BP 135/80 01/05/23 07:00 Pulse Ox 95 01/05/23 07:00 FiO2 Intake & Output 01/04/23 01/05/23 01/05/23 18:59 06:59 18:59 Intake Total 905 Output Total 450 Balance 455 Intake: IV 50 Intake, IV Titration 375 Amount Sodium Chloride 0.9% 1, 375 000 ml @ 75 mls/hr IV . [id number] DARI Rx#:[id number] Oral 480 Output: Urine 450 Other: Voiding Method Toilet # Voids 1 1 - Labs CBC & Chem 7: 01/05/23 04:26 01/05/23 04:26 Labs: Abnormal Lab Results - Last 24 Hours (Table) 01/05/23 01/05/23 Range/Units 04:26 04:26 RBC 4.06 L (4.10-5.20) X 10*6/uL Plt Count 112 L (140-440) X 10*3/uL BUN/Creatinine Ratio 26.71 H (12.00-20.00) Ratio
== END 2023-01-05 13:48 | disposition home or self-care (01) ==
LOC: EC 08:33 → 6NMEDSUR 12:01
PROVIDERS: ADMIT Internal Medicine; ATTEND Internal Medicine
DX: R07.9 Chest pain, unspecified (principal); R94.39 Abnormal result of other cardiovascular function study; I65.23 Occlusion and stenosis of bilateral carotid arteries; I16.0 Hypertensive urgency; I11.0 Hypertensive heart disease with heart failure; I50.9 Heart failure, unspecified; E78.00 Pure hypercholesterolemia, unspecified; I25.10 Atherosclerotic heart disease of native coronary artery without angina pectoris; E66.01 Morbid (severe) obesity due to excess calories; Z68.41 Body mass index [BMI] 40.0-44.9, adult; Z98.84 Bariatric surgery status; Z20.822 Contact with and (suspected) exposure to COVID-19; Z79.890 Hormone replacement therapy; Z79.899 Other long term (current) drug therapy; Z88.6 Allergy status to analgesic agent; D69.6 Thrombocytopenia, unspecified; E03.9 Hypothyroidism, unspecified
CPT/HCPCS: 96361; 96372 ×3; 96375; 96374; 99285; 36415; 93005; 93306; 93458; 76937; 84439; 80061; 80053; 80048 ×2; 84443; 83735; 84484; 85025; 85027 ×2; 85610; 85730; 87635; 71046; G0378 ×3; C1769; C1894; J2250; J0360; J1644 ×4; J2405; J2001; Q9967

== ENCOUNTER → 2023-10-18 | Outpatient (CLI) | payer MEDICARE ==
--- NOTE | 2023-10-23 07:44 | MM ---
Reason for Exam: Screening (asymptomatic). Last mammogram was performed 2 year(s) and 9 month(s) ago. Patient History: Menarche at age 12. First Full-Term at age 21. Postmenopausal. Patient has history of breast feeding. Other cancer. Patient used Estrogen for 1 year. Patient used Progesterone for 1 year. Risk Values: Leslie 5 year model risk: 1.7%. NCI Lifetime model risk: 4.5%. Prior Study Comparison: 11/28/1994 Screening Mammogram, Unknown. 11/07/2010 Bilateral Screening Mammogram, [facility]. 12/04/2011 Bilateral Screening Mammogram, [facility]. 12/30/2020 Bilateral Screening Mammogram, [facility]. Tissue Density: There are scattered areas of fibroglandular density. Findings: Analyzed By CAD. Right breast: There is no suspicious group of microcalcifications or new suspicious mass. Left breast: There is no suspicious group of microcalcifications or new suspicious mass. Overall Assessment: Negative, BI-RAD 1 Management: Screening Mammogram of both breasts in [address] [facility] will attempt to contact patient to return for supplemental views and ultrasound if indicated. Patient should continue monthly self-breast exams. A clinical breast exam by your physician is recommended on an annual basis. This exam should not preclude additional follow-up of suspicious palpable abnormalities. Note on Leslie scores and lifetime risk: 1. A Leslie score greater than 3% is considered moderate risk. If this is the case, consider specialist referral to assess eligibility for a risk reducing agent. 2. If overall lifetime risk for the development of breast cancer is 20% or higher, the patient may qualify for future screening with alternating mammogram and breast MRI. Electronically signed and approved by: Raul Bullard DO
== END | disposition home or self-care (01) ==
LOC: RADMAMWWP 09:04
PROVIDERS: ATTEND Family Medicine
DX: Z12.31 Encounter for screening mammogram for malignant neoplasm of breast
CPT/HCPCS: 77063; 77067

== ENCOUNTER → 2023-11-05 | Outpatient (CLI) | payer MEDICARE ==
--- NOTE | 2023-11-05 14:07 | XR ---
EXAMINATION TYPE: XR chest 2V DATE OF EXAM: 11/05/2023 COMPARISON: 01/03/2023 INDICATION: Short of breath left upper quadrant pain TECHNIQUE: Frontal and lateral views of the chest are obtained. FINDINGS: The heart size is normal. The pulmonary vasculature is normal. The lungs are clear. IMPRESSION: 1. No acute pulmonary process. [facility], , 11/05/2023 2:05 PM
--- NOTE | 2023-11-05 14:09 | XR ---
EXAMINATION TYPE: XR abdomen 1V DATE OF EXAM: 11/05/2023 COMPARISON: None INDICATION: Short of breath left upper quadrant pain TECHNIQUE: Single view abdomen spine view FINDINGS: There is a nonspecific bowel gas pattern with air within small bowel loops as well as the colon Psoas margins are normal. No organomegaly is present. Surgical clips are in the epigastric region. Cholecystectomy clips are in the right upper quadrant. IMPRESSION: 1. Nonspecific abdomen [facility], , 11/05/2023 2:07 PM
== END | disposition home or self-care (01) ==
LOC: RADXRMAIN 12:14
PROVIDERS: ATTEND Family Medicine
DX: R06.02 Shortness of breath (principal); R10.12 Left upper quadrant pain
CPT/HCPCS: 71046; 74018

== ENCOUNTER 2023-11-12 08:54 | Emergency (ER) | payer MEDICARE ==
--- NOTE | 2023-11-12 09:29 | ED ---
Abdominal Pain HPI - General Source: patient, RN notes reviewed Mode of arrival: wheelchair Limitations: no limitations <Priya Villela - Last Filed: 11/12/23 16:44> <Garima Valdez - Last Filed: 11/18/23 13:31> - General Chief Complaint: Abdominal Pain Stated Complaint: vomiting Time Seen by Provider: 11/12/23 09:28 - History of Present Illness Initial Comments: 73-year-old female presented to ER with a chief complaint of left upper quadrant abdominal pain. Patient states she was seen by her primary care provider last week for shortness of breath. She does have a history of heart failure. Denies any home O2 use or CPAP. Patient states for the past week she has been reporting some exertional dyspnea and orthopnea. She does take a diuretic daily. Reports mild peripheral edema. She also has been reporting left upper quadrant abdominal pain. She states it has been persistent and progressively worsening. She reports that while at work yesterday she stood up and experienced a sharp left upper quadrant abdominal pain. She states today she been very nauseous denies vomiting. Denies any diarrhea states her last bowel movement was yesterday and was "normal". Denies any fevers or chills. Denies cough or congestion. Denies any chest pain. (Priya Villela) - Related Data Home Medications Medication Instructions Recorded Confirmed Acetaminophen Tab [Tylenol] 1,000 mg PO BID 01/03/23 11/12/23 Atorvastatin [Lipitor] 20 mg PO DAILY 01/03/23 11/12/23 Levothyroxine Sodium [Synthroid] 75 mcg PO DAILY@0630 01/03/23 11/12/23 Spironolactone [Aldactone] 50 mg PO DAILY 01/03/23 11/12/23 Ubidecarenone [Coenzyme Q10] 100 mg PO DAILY 01/03/23 11/12/23 Albuterol Inhaler [Ventolin Hfa 1 - 2 puff INHALATION RT-Q4H PRN 11/12/2311/11 Inhaler] Alendronate Sodium 70 mg PO FR 11/12/23 11/12/23 Fluticasone Nasal [place] [Flonase 1 - 2 spray EA NOSTRIL DAILY PRN 11/12/23 11/12/23 Nasal [place]] Fluticasone Propion/Salmeterol 1 puff INHALATION RT-DAILY 11/12/23 11/12/23 [Fluticasone-Salmeterol 100-50] Gabapentin [Neurontin] 100 mg PO TID 11/12/23 11/12/23 Losartan Potassium 100 mg PO DAILY 11/12/23 11/12/23 Ofloxacin 0.3% Ophth Soln [Ocuflox 1 drop BOTH EYES DIRECTED 11/12/23 11/12/23 Ophth Soln] prednisoLONE ACETATE 1% OPHTH 1 drop BOTH EYES DIRECTED 11/12/23 11/12/23 [Pred Forte 1%] Previous Rx's Medication Instructions Recorded Metoprolol Tartrate [Lopressor] 12.5 mg PO BID 30 Days #60 tab 01/05/23 amLODIPine [Norvasc] 5 mg PO DAILY 30 Days #30 tab 01/05/23 Allergies Allergy/AdvReac Type Severity Reaction Status Date / Time aspirin AdvReac Has Verified 11/12/23 13:25 gastric bypass, "eats up her stomach" Review of Systems ROS Other: All systems not noted in ROS Statement are negative. <Priya Villela - Last Filed: 11/12/23 16:44> ROS Other: All systems not noted in ROS Statement are negative. <Garima Valdez - Last Filed: 11/18/23 13:31> ROS Statement: Those systems with pertinent positive or pertinent negative responses have been documented in the HPI. Past Medical History Past Medical History: Coronary Artery Disease (CAD), Heart Failure, Hyperlipidemia, Hypertension, Thyroid Disorder History of Any Multi-Drug Resistant Organisms: None Reported Past Surgical History: Cholecystectomy, Hernia Repair Additional Past Surgical History / Comment(s): gastric bypass 1998, foot surgery Past Psychological History: No Psychological Hx Reported Smoking Status: Never smoker Past Alcohol Use History: None Reported Past Drug Use History: None Reported <Priya Villela - Last Filed: 11/12/23 16:44> General Exam Limitations: no limitations General appearance: alert, in no apparent distress Respiratory exam: Present: normal lung sounds bilaterally. Absent: respiratory distress, wheezes, rales, rhonchi, stridor Cardiovascular Exam: Present: regular rate, normal rhythm, normal heart sounds. Absent: systolic murmur, diastolic murmur, rubs, gallop, clicks GI/Abdominal exam: Present: soft, tenderness (Left upper quadrant), normal bowel sounds Extremities exam: Present: normal inspection, full ROM, normal capillary refill. Absent: tenderness, pedal edema, joint swelling, calf tenderness Neurological exam: Present: alert, oriented X3, CN II-XII intact Skin exam: Present: warm, dry, intact, normal color. Absent: rash <Priya Villela - Last Filed: 11/12/23 16:44> - General Exam Comments Initial Comments: Visual Physical Exam Vital signs reviewed General: Well-appearing, nontoxic, no acute distress. Head: Normocephalic, atraumatic Eyes: PERRLA, EOMI ENT: Airway patent Chest: Nonlabored breathing Skin: No visual rash, normal skin tone Neuro: Alert and oriented 3 Musculoskeletal: No gross abnormalities (Priya Villela) Course Vital Signs 11/12/23 11/12/23 11/12/23 08:56 13:53 15:40 Temperature 98.2 F 98.6 F Pulse Rate 86 83 80 Respiratory 16 18 18 Rate Blood Pressure 151/69 151/91 163/81 O2 Sat by Pulse 97 96 95 Oximetry 11/12/23 11/12/23 17:10 18:46 Temperature Pulse Rate 87 89 Respiratory 18 18 Rate Blood Pressure 143/85 109/73 O2 Sat by Pulse 95 93 L Oximetry Medical Decision Making - Lab Data Result diagrams: 11/12/23 11:07 11/12/23 11:07 - EKG Data -: EKG Interpreted by Sc <Priya Villela - Last Filed: 11/12/23 16:44> - Lab Data Result diagrams: 11/12/23 11:07 11/12/23 11:07 <Garima Valdez - Last Filed: 11/18/23 13:31> - Medical Decision Making I performed the quick note portion of this chart. Electronically signed by Priya Villela PA-C Was pt. sent in by a medical professional or institution (KETURAH Eisenberg, ELECTRICAL SYSTEM SPECIALIST, urgent care, hospital, or [facility]...) When possible be specific @ -[No] Did you speak to anyone other than the patient for history (EMS, parent, family, police, friend...)? What history was obtained from this source @ -[No] Did you review nursing and triage notes (agree or disagree)? Why? @ -[I reviewed and agree with nursing and triage notes] Were old charts reviewed (outside hosp., previous admission, EMS record, old EKG, old radiological studies, urgent care reports/EKG's, [facility] records)? Report findings @ -[No old charts were reviewed] Differential Diagnosis (chest pain, altered mental status, abdominal pain women, abdominal pain men, vaginal bleeding, weakness, fever, dyspnea, syncope, headache, dizziness, GI bleed, back pain, seizure, CVA, palpatations, mental health, musculoskeletal)? @ -Differential Abdominal Pain Women: Appendicitis, Cholecystitis, diverticulosis, ischemic bowel, pancreatitis, hepatitis, UTI, gastroenteritis, AAA, incarcerated hernia, bowel obstruction, constipation, inflammatory bowel, hepatitis, peptic ulcer disease, splenic infarction, perforated viscus, vulvitis, ovarian torsion, PID, kidney stone, placenta abruption, this is not meant to be an all-inclusive list EKG interpreted by me (3pts min.). @ -[As above] X-rays interpreted by me (1pt min.). @ -X-ray interpreted me negative for acute cardiopulmonary process. CT interpreted by me (1pt min.). @ -Pending U/S interpreted by me (1pt. min.). @ -[None done] What testing was considered but not performed or refused? (CT, X-rays, U/S, labs)? Why? @ -[None] What meds were considered but not given or refused? Why? @ -[None] Did you discuss the management of the patient with other professionals (mounika jones i.eYessenia Eisenberg, PA, ELECTRICAL SYSTEM SPECIALIST, lab, RT, psych nurse, social director, hoop bender tank, teacher, unemployment insurance hearing officer, field nurse case manager)? Give summary @ -[No] Was smoking cessation discussed for >3mins.? @ -[No] Was critical care preformed (if so, how long)? @ -[No] Were there social determinants of health that impacted care today? How? (Homelessness, low income, unemployed, alcoholism, drug addiction, transportation, low edu. Level, literacy, decrease access to med. care, nursing home, rehab)? @ -[No] Was there de-escalation of care discussed even if they declined (Discuss DNR or withdrawal of care, Hospice)? DNR status @ -[No] What co-morbidities impacted this encounter? (DM, HTN, Smoking, COPD, CAD, Cancer, CVA, ARF, Chemo, Hep., AIDS, mental health diagnosis, sleep apnea, morbid obesity)? @ -[None] Was patient admitted / discharged? Hospital course, mention meds given and route, prescriptions, significant lab abnormalities, going to OR and other pertinent info. @ -73-year-old female presented to ER with a chief complaint of shortness of breath and left upper quadrant abdominal pain. History and physical exam completed. Vitals within normal limits. Patient in no signs of acute distress and nontoxic-appearing. Laboratory studies obtained. CT pending. Patient signed out to Dr. Valdez pending CT results and disposition. (Priya Villela) Signout received from KRISTEN. Patient here for abdominal pain, shortness of breath and difficulty swallowing. Difficulty swallowing x [address] PE study due to shortness of breath and CT abdomen pelvis with contrast as patient has had prior gastric sleeve surgery, abdominal pain and inability to swallow. CT PE and CT abdomen/pelvis negative for acute process with exception of 2 cm CBD however patient has normal LFTs. I reassessed the patient and she attempted to drink water however upon trying to swallow water began having dyspepsia and she could barely swallow the water. States she feels nauseous the minute she tries to swallow. Patient states her epigastric pain started yesterday when she went to lunch she could not swallow. She denies any sensation of foreign body or swallowing any foreign bodies, bones, large pieces of meat or large pills. As patient has dysphagia to liquids and solids. Plans for transfer for EGD since patient is unable to tolerate p.o. intake. Patient agreeable with plan. Discussed case with MELISSA Su at [facility]. Kindly accepts for transfer, pt is able to tolerate her secretions, plans on EGD tomorrow. Updated pt to plan of care. Pt remains well and comfortable appearing. States epigastric pain is returning so will given one dose of pain meds and transfer. I did offer the patient transfer via ambulance however she was more comfortable transferring via private vehicle. Gave patient and her address of [facility]. Patient stable condition for transfer. (Garima Valdez) - Lab Data Lab Results 11/12/23 11/12/23 11/12/23 Range/Units 11:07 11:07 11:07 WBC 8.5 (3.8-10.6) k/uL RBC 4.17 (3.80-5.40) m/uL Hgb 13.8 (11.4-16.0) gm/dL Hct 41.9 (34.0-46.0) % MCV 100.5 H (80.0-100.0) fL MCH 33.0 (25.0-35.0) pg MCHC 32.9 (31.0-37.0) g/dL RDW 13.0 (11.5-15.5) % Plt Count 131 L (150-450) k/uL MPV 9.4 Neutrophils % 76 % Lymphocytes % 13 % Monocytes % 7 % Eosinophils % 1 % Basophils % 0 % Neutrophils # 6.5 (1.3-7.7) k/uL Lymphocytes # 1.1 (1.0-4.8) k/uL Monocytes # 0.6 (0-1.0) k/uL Eosinophils # 0.1 (0-0.7) k/uL Basophils # 0.0 (0-0.2) k/uL Sodium 140 (137-145) mmol/L Potassium 4.2 (3.5-5.1) mmol/L Chloride 106 (98-107) mmol/L Carbon Dioxide 28 (22-30) mmol/L Anion Gap 6 mmol/L BUN 19 H (7-17) mg/dL Creatinine 0.60 (0.52-1.04) mg/dL Est GFR (CKD-EPI)AfAm >90 (>60 ml/min/1.73 sqM) Est GFR (CKD-EPI)NonAf >90 (>60 ml/min/1.73 sqM) Glucose 110 H (74-99) mg/dL Plasma Lactic Acid Homar 1.1 (0.7-2.0) mmol/L Calcium 9.0 (8.4-10.2) mg/dL Total Bilirubin 1.1 (0.2-1.3) mg/dL AST 27 (14-36) U/L ALT 19 (4-34) U/L Alkaline Phosphatase 73 (38-126) U/L Troponin I (0.000-0.034) ng/mL NT-Pro-B Natriuret Pep pg/mL Total Protein 6.7 (6.3-8.2) g/dL Albumin 4.1 (3.5-5.0) g/dL Amylase 39 (30-110) U/L Lipase 85 (23-300) U/L 11/12/23 11/12/23 Range/Units 11:07 15:47 WBC (3.8-10.6) k/uL RBC (3.80-5.40) m/uL Hgb (11.4-16.0) gm/dL Hct (34.0-46.0) % MCV (80.0-100.0) fL MCH (25.0-35.0) pg MCHC (31.0-37.0) g/dL RDW (11.5-15.5) % Plt Count (150-450) k/uL MPV Neutrophils % % Lymphocytes % % Monocytes % % Eosinophils % % Basophils % % Neutrophils # (1.3-7.7) k/uL Lymphocytes # (1.0-4.8) k/uL Monocytes # (0-1.0) k/uL Eosinophils # (0-0.7) k/uL Basophils # (0-0.2) k/uL Sodium (137-145) mmol/L Potassium (3.5-5.1) mmol/L Chloride (98-107) mmol/L Carbon Dioxide (22-30) mmol/L Anion Gap mmol/L BUN (7-17) mg/dL Creatinine (0.52-1.04) mg/dL Est GFR (CKD-EPI)AfAm (>60 ml/min/1.73 sqM) Est GFR (CKD-EPI)NonAf (>60 ml/min/1.73 sqM) Glucose (74-99) mg/dL Plasma Lactic Acid Homar (0.7-2.0) mmol/L Calcium (8.4-10.2) mg/dL Total Bilirubin (0.2-1.3) mg/dL AST (14-36) U/L ALT (4-34) U/L Alkaline Phosphatase (38-126) U/L Troponin I <0.012 (0.000-0.034) ng/mL NT-Pro-B Natriuret Pep 664 pg/mL Total Protein (6.3-8.2) g/dL Albumin (3.5-5.0) g/dL Amylase (30-110) U/L Lipase (23-300) U/L - EKG Data EKG Comments: EKG taken at 12: 14 showing a sinus rhythm. No acute ST segment changes. Inverted T waves in lead III. Ventricular rate 73, KS interval 125, QRS duration 106, QT/QTc 370/400 (Priya Villela) Disposition <Priya Villela - Last Filed: 11/12/23 16:44> - Out of Hospital Transfer - Req. Specs Out of Hospital Transfer - Requested Specifics: Other Emergency Center <Garima Valdez - Last Filed: 11/18/23 13:31> Clinical Impression: Dysphagia Disposition: DC/TRNS INTERMEDIATE CARE FAC Condition: Good Referrals: Rabia Hdez MD [Primary Care Provider] - 1-2 days
[2023-11-12 11:22] LABS: Basophils % (A) 0 %; Eosinophils # (A) 0.1 k/uL (0-0.7); Eosinophils % (A) 1 %; HCT 41.9 % (34.0-46.0); HGB 13.8 gm/dL (11.4-16.0); Lymphocytes # (A) 1.1 k/uL (1.0-4.8); Lymphocytes % (A) 13 %; MCHC 32.9 g/dL (31.0-37.0); MCV 100.5 fL (80.0-100.0); Mean Platelet Volume 9.4; Monocytes # (A) 0.6 k/uL (0-1.0); Monocytes % (A) 7 %; Neutrophils # (A) 6.5 k/uL (1.3-7.7); Neutrophils % (A) 76 %; Platelet Count 131 k/uL (150-450); RBC 4.17 m/uL (3.80-5.40); WBC 8.5 k/uL (3.8-10.6)
[2023-11-12 11:31] LABS: ALT 19 U/L (4-34); AST 27 U/L (14-36); African American GFR (CKD) >90 (>60 ml/min/1.73 sqM); Albumin 4.1 g/dL (3.5-5.0); Alkaline Phosphatase 73 U/L (38-126); Amylase 39 U/L (30-110); Anion Gap 6 mmol/L; Blood Urea Nitrogen 19 mg/dL (7-17); Carbon Dioxide 28 mmol/L (22-30); Chloride 106 mmol/L (98-107); Glucose 110 mg/dL (74-99); Lipase 85 U/L (23-300); Non-African American GFR(CKD) >90 (>60 ml/min/1.73 sqM); Potassium 4.2 mmol/L (3.5-5.1); Sodium 140 mmol/L (137-145); Total Bilirubin 1.1 mg/dL (0.2-1.3); Total Protein 6.7 g/dL (6.3-8.2)
--- NOTE | 2023-11-12 12:27 | XR ---
EXAMINATION TYPE: XR chest 2V DATE OF EXAM: 11/12/2023 COMPARISON: 11/05/2023 INDICATION: Exertional dyspnea TECHNIQUE: Frontal and lateral views of the chest are obtained. FINDINGS: The heart size is normal. The pulmonary vasculature is normal. The lungs are clear. Air is some elevation of the right diaphragm IMPRESSION: 1. No acute pulmonary process. [facility], , 11/12/2023 12:25 PM
[2023-11-12 13:54] VITALS: RESP 18
[2023-11-12] MEDS: MIDAZOLAM 2 MG/2 ML VIAL IV ONE (15:37)
[2023-11-12] MEDS: MORPHINE SULFATE 4 MG/ML SYRINGE IVP STA ×2 (15:37→18:33)
[2023-11-12 15:41] VITALS: TEMP 98.6
--- NOTE | 2023-11-12 17:07 | CT ---
CTA CHEST EXAMINATION TYPE: CT angio chest DATE OF EXAM: 11/12/2023 INDICATION: LUQ pain and SOB. CT DLP: Combined DLP of 2436.5 mGycm, Automated exposure control for dose reduction was used. CONTRAST: Patient injected with 100ml mL of Isovue 370. COMPARISON: None TECHNIQUE: CT of the chest is performed on a spiral scan at 2 mm thick sections. Study is performed with intravenous contrast timed for evaluation for pulmonary embolism. This will limit additional po rtions of the evaluation. 3-D MIP images reconstructed by the technologist are reviewed on the compu ter in the coronal and sagittal planes. FINDINGS: No persistent filling defects are evident to suggest an acute pulmonary embolism. No mediastinal or hilar adenopathy enlarged by CT criteria is evident. The ascending aorta diameter at the level of the main pulmonary artery is 3.7 cm. The main pulmonary artery diameter at the bifurcation is 3.6 cm. Lung windows are clear. Limited CT sections were through the upper abdomen. Peripelvic cysts may be present. IMPRESSION: 1. No acute pulmonary embolism. [facility], , 11/12/2023 5:05 PM
--- NOTE | 2023-11-12 17:25 | CT ---
EXAMINATION TYPE: CT abdomen pelvis w con DATE OF EXAM: 11/12/2023 COMPARISON: None INDICATION: LUQ pain and SOB. DLP: Combined DLP of 2436.5 mGycm, Automated exposure control for dose reduction was used. CONTRAST: 100ml mL of Isovue 370. Study performed without Oral Contrast TECHNIQUE: Axial images were obtained from above the diaphragm to the pubic rami in the axial plane a t 5 mm thick sections. Reconstructed images are reviewed on the computer in the coronal plane. FINDINGS: Limited CT sections are obtained the lung bases. The lung bases are clear. CT ABDOMEN: Liver: There is some mild biliary prominence of the central biliary system and common bile duct. Gall bladder surgically absent. Spleen: Normal Pancreas: Normal Adrenal glands: Lateral adrenal glands are thickened measuring 1.9 cm on the right and 1.6 cm on the left. Gallbladder: Surgically absent Kidneys: No masses are evident. No hydronephrosis is present. Right pelvic cysts are present bilate rally. Delayed images were obtained through the kidneys, which well demonstrate the peripelvic cyst. Aorta: Normal Inferior vena cava: Normal. CT PELVIS: Loops of bowel within the abdomen and pelvis are normal. Study is without oral contrast limiting evaluation. Appendix: Normal as visualized. Urinary bladder: Normal. Genitourinary structures: Uterus and ovaries appear unremarkable Osseous structures: No suspicious lytic or sclerotic lesions. Facet degenerative changes are present in the lower lumbar spine IMPRESSION: 1. Prominence of the bilateral adrenal glands. 2. Prominent postcholecystectomy common bile duct measuring 2 cm. Normal less than 1 cm. 3. Peripelvic cysts. [facility], , 11/12/2023 5:23 PM
[2023-11-12] MEDS: ONDANSETRON 4 MG/2 ML VIAL IVP STA (18:33)
[2023-11-12 18:51] VITALS: BP 109/73; PULSE 89
== END 2023-11-12 19:11 ==
LOC: EC 08:54
DX: R11.10 Vomiting, unspecified
CPT/HCPCS: 36415; 71046; 71275; 74177; 80053; 82150; 83605; 83690; 83880; 84484; 85025; 93005; 96374; 96375; 96376; 99285

== ENCOUNTER → 2024-03-06 | Outpatient (CLI) | payer MEDICARE ==
[2024-03-06 15:42] LABS: Albumin 3.9 g/dL (3.8-4.9); Albumin/Globulin Ratio 1.77 Ratio (1.60-3.17); Bilirubin, Conjugated 0.23 mg/dL (0.20-0.40); Bilirubin,Unconjugated 0.17 mg/dL (0.20-1.00); Globulin 2.2 g/dL (1.6-3.3); Total Bilirubin 0.4 mg/dL (0.3-1.2); Total Protein 6.1 g/dL (6.2-8.2)
== END | disposition home or self-care (01) ==
LOC: LABWHC1 09:38
PROVIDERS: ATTEND Internal Medicine Gastroenterology
DX: K83.8 Other specified diseases of biliary tract (principal)
CPT/HCPCS: 36415; 80076; 82248